=== PATIENT | female | born 1960 | race Caucasian/White ===

== ENCOUNTER 2017-05-23 04:57 | Emergency (ER) | payer MEDICARE, MEDICAID ==
[2017-05-23] MEDS ORDERED: Sodium Chloride 0.9% 10 ML Syringe FLUSH PRN (05:21)
[2017-05-23] MEDS ORDERED: Ondansetron 4 MG/2 ML SDV IVPUSH ONE (05:21)
[2017-05-23] MEDS ORDERED: Morphine 10 MG/ML Syringe IVPUSH ONE ×2 (05:22→07:30)
[2017-05-23] MEDS ORDERED: Sodium Chloride 0.9% 1,000 ML IV ONE (05:45)
[2017-05-23 06:05] LABS: CHLORIDE,CL 105 mmol/L (98-107); SODIUM,NA 144 mmol/L (136-145)
[2017-05-23] MEDS ORDERED: GI Cocktail Oral Solution 30 ML PO ONE (06:06)
[2017-05-23] MEDS ORDERED: Potassium Chloride 10 MEQ Tab.ER PO ONE ×2 (06:09→07:41)
--- NOTE | 2017-05-23 06:09 | EDM.PDOC ---
ED HPI GENERAL MEDICAL PROBLEM - General Chief Complaint: Abdominal Pain Stated Complaint: abd pain, cough, nausea Time Seen by Provider: 05/23/17 05:30 Source of Information: Reports: Patient History Limitations: Reports: No Limitations - History of Present Illness INITIAL COMMENTS - FREE TEXT/NARRATIVE: Patient has been ill for several weeks with cough/could complaints. Seen in clinic. Told to use albuterol nebs to help with cough. Non-smoker. No antibiotics prescribed. Started to notice abdominal pain intermittently approx one week ago. Suddenly worsened this night, became nauseated. More bowel movements that usual yesterday. Normal color. Not diarrhea. Some dry heaves. Varies in location, currently worse on left side of abdomen but has been in RUQ/epigastric area. Accompanied by worse than usual heartburn. No HEENT complaints. No complaints. Nothing specifically triggers or improves the abdominal pain, including food/ water and positional changes. Left Upper Abdomen Pain Score (Numeric/FACES): 10 - Related Data Allergies Allergy/AdvReac Type Severity Reaction Status Date / Time etodolac [Etodolac] Allergy Abdominal Verified 05/23/17 04:58 Cramps Latex, Natural Rubber Allergy Hives Verified 05/23/17 04:58 Home Meds: Home Meds Cyanocobalamin (Vitamin B-12) [Vitamin B-12] 1,000 mcg SL DAILY 03/06/13 [ History] Lisinopril [Prinivil] 20 mg PO QAM 03/06/13 [History] Sertraline HCl [Zoloft] 200 mg PO QAM 03/06/13 [History] Pantoprazole [ProTONIX] 40 mg PO BID 11/13/14 [History] Polyethylene Glycol 3350 [MiraLAX] 17 gm PO QAM PRN 11/13/14 [History] atorvaSTATin [Lipitor] 40 mg PO BEDTIME 11/13/14 [History] Metoclopramide [Reglan] 10 mg PO QID PRN 10/09/15 [History] Albuterol/Ipratropium [DuoNeb 3.0-0.5 MG/3 ML] 1 inh INH Q4HR PRN 05/23/17 [ History] Naproxen Sodium [Aleve] 3 cap PO Q6HR PRN 05/23/17 [History] Past Medical History HEENT History: Reports: Impaired Vision Cardiovascular History: Reports: High Cholesterol, Hypertension, Other (See Below) Other Cardiovascular History: aortic valve dysfunction, Bundle BB Gastrointestinal History: Reports: Chronic Constipation, GERD Genitourinary History: Reports: Other (See Below) Other Genitourinary History: Urine urgency Musculoskeletal History: Reports: Back Pain, Chronic, Fibromyalgia, Osteoarthritis, Other (See Below) Other Musculoskeletal History: hand numbness. chronic pain sydrome Psychiatric History: Reports: Anxiety, Depression Endocrine/Metabolic History: Reports: Diabetes, Type II, Obesity/BMI 30+ Hematologic History: Reports: B12 Deficiency - Past Surgical History Female Surgical History: Reports: Hysterectomy, Other (See Below) Musculoskeletal Surgical History: Reports: Other (See Below) Social & Family History - Tobacco Use Smoking Status *Q: Never Smoker - Alcohol Use Days Per Week of Alcohol Use: 0 - Recreational Drug Use Recreational Drug Use: No Drug Use in Last 12 Months: No ED ROS GENERAL - Review of Systems Review Of Systems: See Below Constitutional: Reports: Decreased Appetite. Denies: Fever, Chills, Diaphoresis , Weight Loss, Weight Gain HEENT: Reports: No Symptoms Respiratory: Reports: Cough. Denies: Shortness of Breath, Wheezing, Pleuritic Chest Pain, Sputum, Hemoptysis Cardiovascular: Reports: No Symptoms. Denies: Chest Pain GI/Abdominal: Reports: Abdominal Pain, Decreased Appetite, Nausea, Vomiting. Denies: Black Stool, Bloody Stool, Constipation, Diarrhea, Difficulty Swallowing , Distension : Reports: No Symptoms Musculoskeletal: Reports: No Symptoms Skin: Reports: No Symptoms Neurological: Reports: No Symptoms Psychiatric: Reports: No Symptoms Hematologic/Lymphatic: Reports: No Symptoms ED EXAM, GI/ABD - Physical Exam Exam: See Below Exam Limited By: No Limitations General Appearance: Alert, WD/WN, Mild Distress, Obese Eyes: Bilateral: Normal Appearance, EOMI Ears: Normal External Exam, Normal Canal, Hearing Grossly Normal, Normal TMs Nose: Normal Inspection, Normal Mucosa, No Blood Throat/Mouth: Normal Inspection, Normal Gums, Normal Oropharynx, Normal Voice, No Airway Compromise, Other (dentures) Head: Atraumatic, Normocephalic Neck: Normal Inspection, Supple, Non-Tender, Full Range of Motion. No: Lymphadenopathy (L), Lymphadenopathy (R) Respiratory/Chest: No Respiratory Distress, No Accessory Muscle Use, Chest Non- Tender, Wheezing (very mild), Other (coarse breath sounds throughout). No: Crackles, Rales, Rhonchi, Stridor Cardiovascular: Normal Peripheral Pulses, Regular Rate, Rhythm, No Murmur GI/Abdominal Exam: Normal Bowel Sounds, Soft, No Distention, Tender (tender all 4 quadrants, mostly noted left upper and lower abdomen. Minimally tender RLQ. ) . No: Guarding, Rigid, Rebound (Female) Exam: Deferred Rectal (Female) Exam: Deferred Back Exam: Normal Inspection. No: CVA Tenderness (L), CVA Tenderness (R), Muscle Spasm, Paraspinal Tenderness, Vertebral Tenderness Extremities: Normal Inspection, Normal Range of Motion, Non-Tender, Other (cap refill 3 seconds) Neurological: Alert, Oriented, Normal Cognition, Normal Gait, No Motor/Sensory Deficits Psychiatric: Normal Affect, Normal Mood Skin Exam: Warm, Dry, Intact, Normal Color EKG INTERPRETATION EKG Date: 05/23/17 Time: 06:11 Rhythm: NSR Rate (Beats/Min): 77 Kiefer: LAD-Left Kiefer Deviation P-Wave: Present QRS: Other (incomplete RBBB) ST-T: Normal QT: Normal Comparison: NA - No Prior EKG Course - Vital Signs Last Recorded V/S: Last Vital Signs Temp 35.8 C 05/23/17 05:07 Pulse 91 05/23/17 05:07 Resp 16 05/23/17 05:07 BP 116/72 05/23/17 05:07 Pulse Ox 97 05/23/17 06:50 - Orders/Labs/Meds Orders: Active Orders 24 hr Category Date Time Status EKG Documentation Completion [RC] ASDIRECTED Care 05/23/17 06:06 Ordered Oxygen Therapy, ED [RC] ASDIRECTED Care 05/23/17 06:50 Active Abdomen Pelvis wo Cont [CT] Stat Exams 05/23/17 05:13 Ordered Potassium Chloride [KCl 10 MEQ in Water 50 ML] 10 meq Med 05/23/17 06:15 Ordered Premix Bag 1 bag IV Q1H Sodium Chloride 0.9% [Saline Flush] Med 05/23/17 05:21 Active 10 ml FLUSH ASDIRECTED PRN Saline Lock Insert [OM.PC] Routine Oth 05/23/17 05:21 Ordered Medication Orders Potassium Chloride 10 meq/ (Premix) 50 mls @ 50 mls/hr IV Q1H DESIREE Stop: 05/23/17 10:14 Last Admin: 05/23/17 06:25 Dose: 50 mls/hr Sodium Chloride (Saline Flush) 10 ml FLUSH ASDIRECTED PRN PRN Reason: Keep Vein Open Last Admin: 05/23/17 05:37 Dose: 10 ml Labs: Laboratory Tests 05/23/17 05/23/17 05/23/17 Range/Units 05:21 05:31 05:31 WBC 12.6 H (4.0-10.2) K/uL RBC 4.21 (3.77-5.09) M/uL Hgb 12.0 (11.7-15.5) g/dL Hct 36.9 (34.0-46.0) % MCV 87.6 (84.0-98.0) fL MCH 28.5 (28.2-33.3) pg MCHC 32.5 (31.7-36.0) g/dL RDW 14.1 (11.2-14.1) % Plt Count 289 D (150-350) K/uL Neut % (Auto) 52.1 (45.0-80.0) % Lymph % (Auto) 41.5 (10.0-50.0) % [place] % (Auto) 3.7 (2.0-14.0) % Eos % (Auto) 2.2 (0.0-5.0) % Baso % (Auto) 0.5 (0.0-2.0) % Neut # (Auto) 6.59 (1.40-7.00) K/uL Lymph # (Auto) 5.24 H (0.50-3.50) K/uL [place] # (Auto) 0.47 (0.00-1.00) K/uL Eos # (Auto) 0.28 (0.00-0.50) K/uL Baso # (Auto) 0.06 (0.00-0.20) K/uL Sodium 144 (136-145) mmol/L Potassium 2.7 L* (3.5-5.1) mmol/L Chloride 105 (98-107) mmol/L Carbon Dioxide 27.0 (21.0-32.0) mmol/L BUN 12 (7-18) mg/dL Creatinine 0.62 (0.51-1.17) mg/dL Est Cr Clr Drug Dosing 89.00 mL/min Estimated GFR (MDRD) > 60 mL/min Glucose 140 H (74-106) mg/dL Calcium 8.4 L (8.5-10.1) mg/dL Total Bilirubin 0.5 (0.2-1.0) mg/dL AST 30 (15-37) U/L ALT 37 (12-78) U/L Alkaline Phosphatase 120 H (46-116) IU/L Total Protein 7.1 (6.4-8.2) g/dL Albumin 3.8 (3.4-5.0) g/dL Amylase 53 (25-115) U/L Lipase 141 (73-393) U/L Specimen Type Urinvoid Urine Color Reshma Urine Appearance Clear Urine pH 6.0 (5.0-9.0) Ur Specific [place] >= 1.030 (1.005-1.030) Urine Protein 100 H (NEGATIVE) mg/dL Urine Glucose (UA) 100 H (NEGATIVE) mg/dL Urine Ketones Trace H (NEGATIVE) mg/dL Urine Occult Blood Negative (NEGATIVE) Urine Nitrite Negative (NEGATIVE) Urine Bilirubin Negative (NEGATIVE) Urine Urobilinogen 0.2 (0.2-1.0) E.U./dL Ur Leukocyte Esterase Negative (NEGATIVE) Urine RBC Not seen /HPF Urine WBC 0-5 /HPF Ur Epithelial Cells Many H /LPF Urine Bacteria Few (NONE TO FEW) /HPF Meds: Medications Generic Name Dose Route Start Last Admin Trade Name Freq PRN Reason Stop Dose Admin Potassium Chloride 10 meq/ 50 mls @ 50 mls/hr 05/23/17 06:15 05/23/17 06:25 Premix IV 05/23/17 10:14 50 mls/hr Q1H DESIREE Administration Sodium Chloride 10 ml 05/23/17 05:21 05/23/17 05:37 Saline Flush FLUSH 10 ml ASDIRECTED PRN Administration Keep Vein Open Discontinued Medications Generic Name Dose Route Start Last Admin Trade Name Freq PRN Reason Stop Dose Admin Al Hydroxide/Mg Hydroxide 30 ml 05/23/17 06:06 05/23/17 06:18 Gi Cocktail PO 05/23/17 06:07 30 ml ONETIME ONE Administration Sodium Chloride 1,000 mls @ 999 mls/hr 05/23/17 05:45 05/23/17 05:58 Normal Saline IV 05/23/17 06:45 999 mls/hr .BOLUS ONE Administration Influenza Virus Vaccine 60 mcg 05/23/17 06:30 Fluzone Quad [id number] IM 05/23/17 06:31 .ONCE ONE Morphine Sulfate 5 mg 05/23/17 05:22 05/23/17 05:38 Morphine IVPUSH 05/23/17 05:23 5 mg ONETIME ONE Administration Ondansetron HCl 4 mg 05/23/17 05:21 05/23/17 05:37 Zofran IVPUSH 05/23/17 05:22 4 mg ONETIME ONE Administration Potassium Chloride 20 meq 05/23/17 06:09 05/23/17 06:17 Klor-Con 10 PO 05/23/17 06:10 20 meq ONETIME ONE Administration - Radiology Interpretation CT Results Date: 05/23/17 CT Results Time: 06:18 (Large rectus sheeth hematoma noted measuring at least 29 by 52cm) - Re-Assessments/Exams Free Text/Narrative Re-Assessment/Exam: 05/23/17 07:13 Hypokalemia identified. PO and IV K ordered. WBC mildly elevated. Glucose elevated. Pain improved with MS, however still rated 5-6 CT obtained, found to have large hematoma of rectus sheeth. BP upon arrival lower than normal per patient, suspect this could be related to the hematoma. Also noted to have drop in Hgb of one point when comparing to last known Hgb from March (13 to 12) Vital signs stable overall however. Reviewing rectus sheath hematomas in literature showed that there is a percentage that require arterial embolization and hypovolemic shock is also possible outcome. Given the size of patient's hematoma, drop in Hgb, and hypotension it was felt that patient would likely benefit from admission to facility where services were available to perform embolization or surgical intervention if needed. Call placed to [facility] and spoke to , Hospitalist. felt that nothing would be gained by transferring patient, even with the above potential risks/lack of specialty care at our facility were brought up, and did not want to take the patient as a transfer. A call was then placed to [facility] to see what they recommended. spoke to us and ultimately involved from surgical services to decide what was best for the patient and situation. agreed that it is uncommon to have significant complications such as hypovolemic shock from such hematomas. However, given the sudden worsening pain , size of hematoma, hypotension, and drop in Hgb he felt that transfer to their facility for closer observation was warranted. Patient continued to receive K replacement during transport. Additional pain medication given prior to leaving ER. Departure - Departure Time of Disposition: 07:12 Disposition: DC/Tfer to Acute Hospital 02 Condition: Good Clinical Impression: Hypokalemia Hematoma of rectus sheath Qualifiers: Encounter type: initial encounter Qualified Code(s): S30.1XXA - Contusion of abdominal wall, initial encounter - Discharge Information Referrals: Flakito Rojas PA [Primary Care Provider] - Forms: ED Department Discharge Additional Instructions: Transfer to [facility] - My Orders Last 24 Hours: My Active Orders 05/23/17 05:13 Abdomen Pelvis wo Cont [CT] Stat 05/23/17 05:21 Sodium Chloride 0.9% [Saline Flush] 10 ml FLUSH ASDIRECTED PRN Saline Lock Insert [OM.PC] Routine 05/23/17 06:06 EKG Documentation Completion [RC] ASDIRECTED 05/23/17 06:15 Potassium Chloride [KCl 10 MEQ in Water 50 ML] 10 meq Premix Bag 1 bag IV Q1H 05/23/17 06:50 Oxygen Therapy, ED [RC] ASDIRECTED - Assessment/Plan Last 24 Hours: My Active Orders 05/23/17 05:13 Abdomen Pelvis wo Cont [CT] Stat 05/23/17 05:21 Sodium Chloride 0.9% [Saline Flush] 10 ml FLUSH ASDIRECTED PRN Saline Lock Insert [OM.PC] Routine 05/23/17 06:06 EKG Documentation Completion [RC] ASDIRECTED 05/23/17 06:15 Potassium Chloride [KCl 10 MEQ in Water 50 ML] 10 meq Premix Bag 1 bag IV Q1H 05/23/17 06:50 Oxygen Therapy, ED [RC] ASDIRECTED
[2017-05-23] MEDS: Potassium Chloride 10 MEQ in Premix Bag 1 BAG IV SCH ×3 (06:25→08:26)
[2017-05-23] MEDS ORDERED: FLU Vacc QS 2017-18 (36mos UP)/PF 60 MCG/0.5 ML Syringe IM ONE (06:30)
[2017-05-23] MEDS ORDERED: Albuterol/Ipratropium 3.0-0.5 MG/3 ML Neb Soln NEB ONE (07:30)
[2017-05-23] MEDS ORDERED: Benzonatate 100 MG Cap PO ONE (07:31)
[2017-05-23] MEDS ORDERED: Pantoprazole 40 MG Vial IVPUSH ONE (07:32)
[2017-05-23 08:09] VITALS: BP 125/80
== END 2017-05-23 08:35 ==
LOC: LL.ED 04:57 → LL.MS 06:14 → UNDOADMOB 06:14 → LL.ED 08:35
DX: S30.1XXA Contusion of abdominal wall, initial encounter (principal); E87.6 Hypokalemia; E78.00 Pure hypercholesterolemia, unspecified; I10 Essential (primary) hypertension; E11.9 Type 2 diabetes mellitus without complications; Z91.040 Latex allergy status; Z88.8 Allergy status to other drugs, medicaments and biological substances; Z79.899 Other long term (current) drug therapy; X58.XXXA Exposure to other specified factors, initial encounter
CPT/HCPCS: 36415; 74176; 80053; 81001; 82150; 83690; 85025; 93005; 96365; 96366; 96375; 96376; 99285; A9270; C9113; J2270; J2405; J3480; J7030; J7050; 93010; 94640

== ENCOUNTER 2017-11-24 09:07 | Day surgery (SDC) | payer MEDICARE, MEDICAID ==
[2017-11-24] MEDS ORDERED: Sodium Chloride 0.9% 10 ML Syringe FLUSH PRN (09:15)
[2017-11-24] MEDS ORDERED: Lactated Ringers 1,000 ML IV SCH (09:15)
[2017-11-24] MEDS ORDERED: Propofol 200 MG/20 ML SDV ONE (10:50)
[2017-11-24] MEDS ORDERED: fentaNYL 100 MCG/2 ML SDV ONE (10:50)
[2017-11-24] MEDS ORDERED: Midazolam 1 MG/ML 2 ML SDV ONE (10:50)
--- NOTE | 2017-11-24 10:53 | PCM.PN ---
- General Info Date of Service: 11/24/17 - Review of Systems Systems Review Comment:: 57-year-old female here for EGD. She has a history of burning epigastric and upper chest pain which has not completely resolved with the use of Protonix. She says that she has had ulcers and H. pylori in the past. She is medically stable to proceed today. Her recent history and physical is reviewed and no significant changes are noted. I discussed the proposed upper endoscopy with the patient. She agrees to proceed accepting risks. - Patient Data Vitals - Most Recent: Last Vital Signs Temp 97.8 F 11/24/17 09:50 Pulse 71 11/24/17 09:50 Resp 20 11/24/17 09:50 BP 110/75 11/24/17 09:50 Pulse Ox 95 11/24/17 09:50 Weight - Most Recent: 105.233 kg Med Orders - Current: Current Medications Lactated Ringer's (Ringers, Lactated) 1,000 mls @ 125 mls/hr IV ASDIRECTED DESIREE Last Admin: 11/24/17 09:48 Dose: 125 mls/hr Sodium Chloride (Saline Flush) 10 ml FLUSH ASDIRECTED PRN PRN Reason: Keep Vein Open - Problem List Review Problem List Initiated/Reviewed/Updated: Yes - My Orders Last 24 Hours: My Active Orders 11/24/17 09:15 Patient Status [ADT] Routine Peripheral IV Care [RC] . DIRECTED Verify Patient Consent Obtain [RC] ASDIRECTED Lactated Ringers [Ringers, Lactated] 1,000 ml IV ASDIRECTED Sodium Chloride 0.9% [Saline Flush] 10 ml FLUSH ASDIRECTED PRN Peripheral IV Insertion Adult [OM.PC] Routine 11/24/17 Breakfast Nothing Per Oral Diet [DIET] - Assessment Assessment:: epigastric pain - Plan Plan:: EGD
[2017-11-24] MEDS ORDERED: Lidocaine 2% 5 ML SDV ONE (11:00)
--- NOTE | 2017-11-24 11:25 | PCM.OPNOTE ---
- General Post-Op/Procedure Note Date of Surgery/Procedure: 11/24/17 Operative Procedure(s): EGD with Biopsy Findings: Normal appearing upper endoscopy Pre Op Diagnosis: Epigastric pain Post-Op Diagnosis: normal upper endoscopy Anesthesia Technique: MAC Primary Surgeon: Enoch Cruz Pathology: Biopsies of Stomach and esophagus Output, Urine Amount: 0 EBL in mLs: 3 Complications: None Condition: Good Free Text/Narrative:: Intake & Output 11/23/17 11/24/17 11/24/17 22:59 06:59 14:59 Intake Total 900 Balance 900
[2017-11-24 15:28] VITALS: BP 107/65
--- NOTE | 2017-11-25 09:52 | OR ---
Date of Procedure: 11/24/2017 REFERRING PROVIDER: Kassie Gputa PA-C PREOPERATIVE DIAGNOSIS: Epigastric pain. POSTOPERATIVE DIAGNOSIS: Normal upper endoscopy. OPERATION PERFORMED: Esophagogastroduodenoscopy with biopsy. INDICATIONS FOR SURGERY: This 57-year-old female has been having a several- month history of epigastric pain. These symptoms persist despite the use of Protonix. There is occasional radiation of pain up into the upper chest area and she comes for diagnostic upper endoscopy. FINDINGS: The patient's upper endoscopy appeared normal. The oropharynx and esophagus did not appear to be hyperemic or acutely inflamed. No ulcers or other lesions were seen in the esophagus. The Z-line is distinct and only minimally irregular. The gastric lining including retroflexion examination of the fundus all appeared normal. No ulcers were seen. The patient's duodenum appeared normal as examined. DESCRIPTION OF PROCEDURE: The patient was taken to the operating room. She was given intravenous sedation, and with her in the left lateral decubitus position, the esophagus was intubated with the Olympus gastroscope. This was carefully advanced under direct visualization through the esophagus, stomach, and into the duodenum, where examination to the third portion was performed. Carefully, the duodenum was examined, found to appear normal, and the scope was withdrawn back into the stomach where full examination including retroflexed examination of the fundus was performed. After carefully examining the stomach, biopsies of the antrum were taken to rule out H. pylori. The GE junction was then carefully examined and biopsies of the Z-line were also taken. The esophagus was re- examined as the scope was withdrawn, and because of the patient's symptoms high in her chest, biopsies of the proximal esophagus, just below the cricopharyngeus were taken. The scope was then removed and the patient was taken from the operating room in satisfactory condition. ESTIMATED BLOOD LOSS: 3 mL. COMPLICATIONS: None. PROGNOSIS: Good. JEROME Cruz MD /[id number]
== END 2017-11-24 12:49 | disposition home or self-care (01) ==
LOC: LL.SDS 09:07
PROVIDERS: ATTEND Surgery
DX: R10.13 Epigastric pain (principal); K31.89 Other diseases of stomach and duodenum; K22.8 Other specified diseases of esophagus; E78.5 Hyperlipidemia, unspecified; E53.8 Deficiency of other specified B group vitamins; E66.9 Obesity, unspecified; Z68.38 Body mass index [BMI] 38.0-38.9, adult; F41.9 Anxiety disorder, unspecified; F32.9 Major depressive disorder, single episode, unspecified; Z79.84 Long term (current) use of oral hypoglycemic drugs; Z79.899 Other long term (current) drug therapy; Z91.040 Latex allergy status; Z88.6 Allergy status to analgesic agent; Z80.0 Family history of malignant neoplasm of digestive organs
CPT/HCPCS: 00731; J2250; J2704; J3010; J7120